=== PATIENT | female | born 1950 | race Asian ===

== ENCOUNTER 2016-10-26 16:20 | Emergency (ER) | payer MEDICARE, MEDICAID ==
[2016-10-26] MEDS ORDERED: SODIUM CHLORIDE 0.9% 250 ML IV ONE (17:37)
[2016-10-26 18:09] LABS: Basophils # (auto) 0 uL; Basophils % (auto) 0.1 % (0.0-2.0); Eosinophils # (auto) 0 uL; Eosinophils % (auto) 0.2 % (0.0-7.0); Hemoglobin 12.8 g/dL (12.2-16.2); Lymphocytes # (auto) 0.6 uL; Lymphocytes % (auto) 5.8 % (10.0-50.0); Mean Corpuscular Hemoglobin 30.1 pg (28.0-32.0); Mean Corpuscular Hgb Conc. 34.4 g/dL (32.0-36.0); Mean Corpuscular Volume 87.5 fL (80.0-100.0); Mean Platelet Volume 8.7 fL (7.4-10.4); Monocytes # (auto) 0.4 uL; Monocytes % (auto) 3.6 % (0.0-12.0); Neutrophils # (auto) 9.6 uL; Neutrophils % (auto) 90.3 % (37.0-80.0); Platelet Count (auto) 236 10^3/uL (140-450); Red Cell Distribution Width 12.6 % (11.6-16.0); White Blood Cell 10.6 10^3/uL (4.4-10.8)
[2016-10-26] MEDS ORDERED: MORPHINE SULFATE 4 MG/ML SYRG IV ONE (18:15)
[2016-10-26] MEDS ORDERED: ONDANSETRON HCL 4 MG/2 ML VIAL IV ONE (18:15)
[2016-10-26 18:35] LABS: Albumin 3.8 g/dL (3.4-5.0); BUN/Creatinine Ratio 21.5; Calcium 8.3 mg/dL (8.5-10.1); Potassium 3.2 mmol/L (3.5-5.1)
[2016-10-26 18:38] LABS: Bilirubin, Total 0.8 mg/dL (0.2-1.0); Total Protein 7.2 g/dL (6.4-8.2)
[2016-10-26] MEDS ORDERED: CLINDAMYCIN 600MG IV 50 ML IV ONE (20:30)
[2016-10-26 21:55] VITALS: BP 118/72
== END 2016-10-26 22:03 | disposition home or self-care (01) ==
LOC: ER 16:20
DX: L03.211 Cellulitis of face (principal); K02.9 Dental caries, unspecified
CPT/HCPCS: 36415; 70486; 80053; 85025; 94761; 96365; 96375; 99285; J2270; J2405; J3490; J7030